=== PATIENT | female | born 1950 | race Caucasian/White ===

== ENCOUNTER 2017-12-09 11:06 | Emergency (ER) | payer BC, MEDICARE ==
[2017-12-09 12:31] VITALS: BP 142/78
--- NOTE | 2017-12-09 12:59 | RAD ---
INDICATION: Right ankle injury COMPARISON: None TECHNIQUE: AP, lateral, and oblique views were obtained. FINDINGS: There is an age indeterminate lateral malleolar fracture. No other fractures are evident. There is minor widening of the lateral aspect of the ankle mortise. There is prominent lateral soft tissue swelling. IMPRESSION: LATERAL SOFT TISSUE SWELLING WITH AGE-INDETERMINATE AVULSION FRACTURE FROM THE LATERAL MALLEOLUS.
--- NOTE | 2017-12-09 13:07 | UC ---
Lower Extremity/Ankle HPI - HPI Summary HPI Summary: right ankle pain x 1 day twisted her right ankle 1 day ago + pain and swelling lateral right ankle pain with walking - History of Current Complaint Chief Complaint: UCTrauma Stated Complaint: RIGHT ANKLE INJURY Time Seen by Provider: 12/09/17 12:33 Hx Obtained From: Patient Onset/Duration: Sudden Onset, Lasting Days - 1, Still Present Severity Initially: Moderate Severity Currently: Moderate Pain Intensity: 3 Aggravating Factor(s): Standing, Ambulation Alleviating Factor(s): Rest, Elevation, Ice Able to Bear Weight: Yes - Allergies/Home Medications Allergies/Adverse Reactions: Allergies Allergy/AdvReac Type Severity Reaction Status Date / Time No Known Allergies Allergy Verified 12/09/17 12:31 Home Medications: Home Medications Lansoprazole [Prevacid] 80 mg PO DAILY 12/09/17 [History Confirmed 12/09/17] PMH/Surg Hx/FS Hx/Imm Hx - Additional Past Medical History Additional PMH: high cholesterol - Surgical History Surgical History: Yes Surgery Procedure, Year, and Place: R achilles tendon rupture repair, R knee replacement, detached retna repair - Family History Known Family History: Negative: Diabetes - Social History Alcohol Use: None Substance Use Type: None Smoking Status (MU): Former Smoker Review of Systems Constitutional: Negative Skin: Negative Eyes: Negative ENT: Negative Respiratory: Negative Is Patient Immunocompromised?: No All Other Systems Reviewed And Are Negative: Yes Physical Exam Triage Information Reviewed: Yes Appearance: Well-Appearing, No Pain Distress, Well-Nourished Vital Signs: Initial Vital Signs Temp 98.5 F 12/09/17 12:27 Pulse 70 12/09/17 12:27 Resp 18 12/09/17 12:27 BP 142/78 12/09/17 12:27 Pulse Ox 96 12/09/17 12:27 Vital Signs Reviewed: Yes Eye Exam: Normal Eyes: Positive: Conjunctiva Clear ENT: Positive: Normal ENT inspection, Hearing grossly normal, Pharynx normal Neck: Positive: Supple, Nontender, No Lymphadenopathy Respiratory: Positive: Chest non-tender, Lungs clear, Normal breath sounds Cardiovascular: Positive: RRR, No Murmur, Pulses Normal Musculoskeletal: Positive: Other: - right ankle : + swelling lateral ankle , + tenderness lateral ankle , pain with flexion and extension , decrease strength Skin Exam: Normal Diagnostics - Laboratory Diagnostic Studies Completed/Ordered: xray right ankle :IMPRESSION: LATERAL SOFT TISSUE SWELLING WITH AGE-INDETERMINATE AVULSION FRACTURE FROM THE. LATERAL MALLEOLUS. Lower Extremity Course/Dx - Differential Dx/Diagnosis Provider Diagnoses: sprain right ankle Discharge - Sign-Out/Discharge Documenting (check all that apply): Discharge/Admit/Transfer - Discharge Plan Condition: Stable Disposition: HOME Patient Education Materials: Ankle Sprain (ED) Referrals: Steph Osorio [Primary Care Provider] - 7 Days - Billing Disposition and Condition Condition: STABLE Disposition: HOME
== END 2017-12-09 13:20 | disposition home or self-care (01) ==
LOC: UCCORT 11:06
DX: S93.401A Sprain of unspecified ligament of right ankle, initial encounter (principal); X50.1XXA Overexertion from prolonged static or awkward postures, initial encounter; Y92.9 Unspecified place or not applicable; E78.00 Pure hypercholesterolemia, unspecified; Z87.891 Personal history of nicotine dependence; Z96.651 Presence of right artificial knee joint
CPT/HCPCS: 99202; G0463